=== PATIENT | female | born 2000 | race Asian ===

== ENCOUNTER 2023-09-23 06:35 | Emergency (ER) | payer OTHER ==
[~2023-09-23] VITALS: Ht 160 cm; Wt 57.6 kg
[2023-09-23 06:40] VITALS: BP_SYST 142; PULSE 117; RESP 20; TEMP 98; O2SAT 96
[2023-09-23 07:36] VITALS: BP_SYST 142; PULSE 105; RESP 18; TEMP 98; O2SAT 98
[2023-09-26 03:06] LABS: HEPATITIS A AB, IgM Negative (Negative); HEPATITIS B CORE AB, IgM Negative (Negative); HEPATITIS B SURFACE AG Negative (Negative); HEPATITIS C VIRUS AB Non Reactive (Non Reactive)
== END 2023-09-23 07:35 | disposition home or self-care (01) ==
LOC: SED 06:35
DX: S61.232A Puncture wound without foreign body of right middle finger without damage to nail, initial encounter (principal); X58.XXXA Exposure to other specified factors, initial encounter; Y93.89 Activity, other specified; Y92.89 Other specified places as the place of occurrence of the external cause; Y99.0 Civilian activity done for income or pay
CPT/HCPCS: 36415; 80074; 99283